=== PATIENT | female | born 1970 | race African-American/Black ===

== ENCOUNTER 2019-11-19 06:22 | Outpatient (CLI) | payer BC, OTHER ==
[2019-11-19 16:08] LABS: Hemoglobin 12.1 g/dL (12.0-16.0); Mean Corpuscular HGB CONC 31.9 g/dL (32.0-36.0); Mean Corpuscular Hemoglobin 28.2 pg (27.0-31.0); Mean Corpuscular Volume 88.3 fL (78.0-98.0); Platelet Count 265 thou/uL (130-400); Red Blood Cell (RBC) Count 4.31 mill/uL (4.20-5.40); White Blood Cell (WBC) Count 7.6 thou/uL (4.8-10.8)
[2019-11-20 12:48] LABS: SARS-CoV-2 MS2 Positive; SARS-CoV-2 N Gene Negative; SARS-CoV-2 S Gene Negative; SARS-CoV-2 orf1ab Negative
== END 2019-11-19 06:23 | disposition home or self-care (01) ==
LOC: LABBT 06:22
PROVIDERS: ATTEND Student in an Organized Health Care Education/Training Program
DX: Z01.812 Encounter for preprocedural laboratory examination (principal); Z11.59 Encounter for screening for other viral diseases; D25.9 Leiomyoma of uterus, unspecified; R10.2 Pelvic and perineal pain
CPT/HCPCS: 85027; 86850; 86870; 86900; 86901; 86905; 87635; U0003

== ENCOUNTER 2019-11-24 08:07 | Day surgery (SDC) | payer BC, OTHER ==
[2019-11-17 11:50] VITALS: BMI 31.8
[2019-11-24] MEDS ORDERED: Famotidine/PF 20 mg/2ml Vial ONE (09:08)
[2019-11-24] MEDS ORDERED: Gabapentin 300 MG CAP ONE (09:08)
[2019-11-24] MEDS ORDERED: CeleCOXIB 100 MG CAP ONE (09:08)
[2019-11-24] MEDS ORDERED: Fentanyl 250 MCG/5 ML VIAL ONE (10:53)
[2019-11-24] MEDS ORDERED: Bupivacaine PF 0.5% 30 ML VIAL ONE (10:57)
[2019-11-24] MEDS ORDERED: Lidocaine 1% w/Epinephrine 1:100K 20 ML VIAL ONE (10:57)
[2019-11-24] MEDS ORDERED: Methylene Blue 50 MG/10 ML AMPUL ONE (12:34)
[2019-11-24] MEDS ORDERED: Promethazine HCl 25 MG/ML VIAL IM PRN ×2 (12:43→13:44)
[2019-11-24] MEDS ORDERED: Ondansetron HCl/PF 4 MG/2 ML Vial IVP PRN (12:43)
[2019-11-24] MEDS ORDERED: HYDROmorphone 2 MG/ML VIAL SLOW IVP PRN (12:43)
[2019-11-24] MEDS ORDERED: Promethazine HCl 25 MG/ML VIAL SLOW IVP PRN (12:43)
[2019-11-24] MEDS ORDERED: Ondansetron PF 4 MG/2 ML Vial IVP PRN (13:44)
[2019-11-24] MEDS ORDERED: Fentanyl 100 MCG/2 ML VIAL SLOW IVP PRN (13:44)
[2019-11-24] MEDS ORDERED: Simethicone Chewable 80 MG TAB PO PRN (13:44)
[2019-11-24] MEDS ORDERED: diphenhydrAMINE 25 MG CAP PO PRN (13:44)
[2019-11-24] MEDS ORDERED: Bisacodyl 10 MG SUPP PR PRN (13:44)
[2019-11-24] MEDS ORDERED: Zolpidem Tartrate 5 MG TAB PO PRN (13:44)
[2019-11-24] MEDS ORDERED: Acetaminophen 325 MG TAB PO PRN (13:44)
[2019-11-24] MEDS ORDERED: traMADol HCl 50 MG TAB PO PRN (13:44)
[2019-11-24] MEDS ORDERED: HYDROcodone/Acetaminophen 5/325 mg Tablet PO PRN ×2 (13:44)
[2019-11-24] MEDS ORDERED: Ondansetron PF 4 MG/2 ML Vial ONE (13:47)
[2019-11-24] MEDS ORDERED: PROPOFOL 200 MG/20 ML VIAL ONE (13:47)
[2019-11-24] MEDS ORDERED: Lidocaine 1% PF 5 ML VIAL ONE (13:47)
[2019-11-24] MEDS ORDERED: Rocuronium Bromide 10 MG/ML (10ML VIAL) ONE (13:47)
[2019-11-24] MEDS ORDERED: EPHEDRINE 25 MG/5 ML SYRINGE ONE (13:47)
[2019-11-24] MEDS ORDERED: Glycopyrrolate 0.2 MG/ML 5 ML SYRINGE ONE (13:47)
[2019-11-24] MEDS ORDERED: Dexamethasone 20 MG/5 ML VIAL ONE (13:47)
[2019-11-24] MEDS: Sodium Chloride 0.9% 1,000 ML IV SCH (17:51)
[2019-11-24] MEDS: Ketorolac Tromethamine 30 MG/ML VIAL IVP SCH ×2 (17:53→23:50)
[2019-11-25] MEDS: Sodium Chloride 0.9% 1,000 ML IV SCH (05:34)
[2019-11-25] MEDS ORDERED: Ibuprofen 800 MG TAB PO SCH (06:00)
[2019-11-25 06:24] LABS: Hemoglobin 11.7 g/dL (12.0-16.0); Mean Corpuscular HGB CONC 32.1 g/dL (32.0-36.0); Mean Corpuscular Hemoglobin 28.5 pg (27.0-31.0); Mean Corpuscular Volume 88.8 fL (78.0-98.0); Mean Platelet Volume 8.2 fL (7.4-10.4); Platelet Count 213 thou/uL (130-400); RBC Distribution Width 11.8 % (11.5-14.5); Red Blood Cell (RBC) Count 4.09 mill/uL (4.20-5.40)
--- NOTE | 2019-11-25 08:04 | PDOC.EVN ---
Event Note - Event Note Event Note: POD1
[2019-11-25 08:09] VITALS: BP 124/61; TEMP 98.9
[2019-11-25] MEDS ORDERED: Amlodipine 5 MG TAB PO SCH (09:00)
[2019-11-25] MEDS ORDERED: Escitalopram Oxalate 10 mg Tablet PO SCH (09:00)
[2019-11-25] MEDS ORDERED: Hydrochlorothiazide 25 MG TAB PO SCH (09:00)
--- NOTE | 2019-11-26 13:14 | OP ---
DATE OF PROCEDURE: 11/24/2019 PREOPERATIVE DIAGNOSES: 1. Uterine fibroids. 2. Pelvic pain. POSTOPERATIVE DIAGNOSES: 1. Uterine fibroids. 2. Pelvic pain. PROCEDURE PERFORMED: Robotic assisted total laparoscopic hysterectomy, left salpingectomy with extracorporeal morcellation. ANESTHESIA: General endotracheal. LEARNING SUPPORT SPECIALIST SURGEON: Autumn Biggs PA-C. ESTIMATED BLOOD LOSS: 50 mL. IVF: 1600 mL of crystalloid. URINE OUTPUT: 170 mL clear urine with a blue tinge due to methylene blue. PATHOLOGY: Uterus, cervix, and left fallopian tube. COMPLICATIONS: None. DRAINS: Acosta catheter. FINDINGS: Large 16 week size uterus with multiple uterine fibroids. Normal-appearing cervix and vaginal mucosa. Normal left fallopian tube and bilateral ovaries. Right fallopian tube was surgically absent. Ureters and bladder intact after administration of methylene blue as well as back filling of the bladder and excellent hemostasis. DESCRIPTION OF PROCEDURE: The patient was taken to the operating room where general anesthesia was obtained without difficulty. The patient was prepped and draped in a sterile fashion in dorsal lithotomy position. A MARY ALICE manipulator was assembled with a 4 cm ring and a 12 cm tip. The MARY ALICE manipulator was inserted into the uterus and the colpotomizer ring was advanced to fit snugly around the cervix. The tenaculum and speculum were removed out of the vagina. Balloons were inflated and legs were placed in low lithotomy. Attention was turned to the abdomen. Anesthetic solution was infiltrated into the umbilicus in the superior aspect and an approximately 3 cm incision was made. The subcutaneous tissue was grasped with Aleena clamps, and the subcutaneous tissue was incised with the Donald scissors until the fascia was met. The fascia was grasped with Aleena clamps and pulled taut. The subcutaneous tissue was dissected off the fascia with the Donald scissors and the fascia was sharply entered into with the Donald scissors. The incision was extended to 3 cm and the small Earl retractor was placed into the incision. The Earl 14 cm bag was then placed into the upper abdomen and the Mini GelPOINT was assembled atop the mini Earl with the 12 mm camera trocar inserted. Pneumoperitoneum was then obtained and the robotic camera was placed into the abdomen and Trendelenburg was obtained. Right and left lower quadrant 8 mm robotic trocars were placed under direct visualization after infiltrating with anesthetic. A right upper quadrant 11 mm child development assistant port was placed under direct visualization after infiltrating with anesthetic. The robot was then docked. The right robotic arm contained the monopolar scissors. Left robotic arm contained a fenestrated bipolar. The surgeon console took control. The uterus was noted to be very broad-based and filling the entire pelvis. The right fallopian tube was surgically absent. The right utero-ovarian was visible and this was cauterized multiple times with the fenestrated and incised with the scissors. The right round ligament was also cauterized with the fenestrated and incised with the scissors. These incision were met in the middle using cautery as the vessels were very engorged due to the patient's fibroid uterus. The anterior and posterior leaves of the broad ligament were opened up at that time, and the retroperitoneum was dissected off the uterus, and the posterior leaf of the broad ligament was able to be incised distally. The ureter was at that point identified in the pelvic sidewall and was not intimately associated with the lateral uterus. The anterior leaf of the broad ligament was also incised and further skeletonization of the uterine vessels was performed mainly using blunt pushing and spreading with the fenestrated, achieving hemostasis with sharp pinpoint bursts of energy from the monopolar scissors as well as cautery of the vessels that were feeding into the fibroid uterus. The vesicouterine peritoneum was then incised while tenting up with the fenestrated undermining the peritoneum to ensure the bladder was not in range and incised with the scissors on cautery and the bladder was carefully dissected down and pushed down below the level of the colpotomizer ring with the fenestrated. There were bladder pillars that were visible that were cauterized with the fenestrated and incised with the scissors. At that point, attention was turned to the left side where the left fallopian tube was grasped and elevated. The mesosalpinx was sequentially clamped, cauterized and incised and the medial portion of the fallopian tube was clamped across, cauterized, incised, and then removed out of the abdomen. The utero-ovarian on the left side was cauterized multiple times with the fenestrated and incised with the scissors. The left round ligament was cauterized with the fenestrated and incised with the scissors. The incisions were met, in a similar fashion was performed on the contralateral side, and the anterior lip, posterior leaves of the broad ligament was opened up. The retroperitoneum was dissected off as well as the posterior leaf of the broad ligament incised down to the level of the round ligament. There was much better visualization at this point as the uterus was more mobile. The ureter was then identified in the pelvic sidewall and this was dissected out directly visible in the retroperitoneum and was dissected out until the ureter dived below the uterine artery. The anterior leaf of the broad ligament was incised down to the level of the contralateral incision and the uterine pedicle was skeletonized with a pushing and spreading of the fenestrated and also incising hazy fibers and small vessels feeding into the uterus with the scissors on cautery. These vessels had been adequately skeletonized and the ureter was visible and the vessels were then clamped and cauterized multiple times. The bladder flap was then further created on the colpotomizer ring by scoring on the pubocervical fascia and bluntly dissecting down the bladder distally below the level of the colpotomizer ring. Attention was then turned to the right side. The right ureter was difficult to visualize and was somewhat close in proximity to the uterine artery where it was located at the internal cervical os. At that point, dissection had already been carried out and there was some concern that the ureter might have been compromised. Therefore, methylene blue was called for in order to locate any direct incision into the ureter with spilled blue fluid and that was given IV by Anesthesia. The ureter was then better identified throughout this process of ensuring adequate skeletonization to allow the ureter to fall away and to localize the vessels that were very engorged and be able to adequately achieve hemostasis. Once this had been performed, the vessels on the uterus were then cauterized above the level of the internal cervical os to ensure that lateral spread of the cautery would not reach the ureter to cause thermal damage and this was done multiple times along the side of the right side of the uterus. A few minutes later, the urine became more blue and there was no blue seen in the field indicating that ureteral incision or transection, and the ureter was visible approximately 2 cm away from the uterine artery at the level of the internal cervical os. Colpotomy was then performed anteriorly and then the lateral uterine arteries were incised. These were incised above the internal cervical os but then dissected down off with the scissors to allow that pedicle to still protrude out in order to achieve hemostasis without causing thermal damage to any surrounding structures down in the pelvis. This was done the same on the left side and then posterior colpotomy was performed and the uterus was completely transected and the manipulator was removed out of the vagina. The uterus was placed up into the upper abdomen and the pelvis was irrigated and hemostasis was achieved of the vaginal cuff with the fenestrated. The scissors were traded out for the needle driver license agent and the vaginal cuff was closed with a 2-0 Stratafix barbed suture in a running fashion and then run back for a second layer with excellent reapproximation ensuring that the suture did not go laterally to hook or kink the ureter in any form or fashion and also incorporated vaginal mucosa and posterior peritoneum in each bite and the needle was cut and removed out of the abdomen. The bag was then brought down into the pelvis and then released from its sutures that held it together and the uterus was placed into the bag easily and the bag was then brought out through the Mini GelPOINT and all instruments were removed out of the abdomen and the robot was undocked. The patient was placed supine at that point and the bag was brought out of mini Earl and the Earl was also removed and placed on the interior of the back in order to hold it taut open and the uterus was then grasped with a Sindi clamp and performing a C-incision technique was morcellated in a contained fashion and this took approximately an additional 20 minutes and all tissue was removed. The back was then removed as well as the Earl and there were no perforations in the bag. The fascia of the umbilical port was closed with 0 PDS suture in a running fashion with excellent reapproximation. That incision was then irrigated and suctioned and the skin was closed with a 4-0 Monocryl in a subcuticular fashion of all incisions and Dermabond was applied. The vaginal cuff was checked from below, noted to be hemostatic with excellent closure. All instruments removed out of the vagina. The patient tolerated the procedure well. Sponge, lap, and needle counts correct x2. The patient was taken to recovery room in stable condition. Patient received Ancef 2 g prior to procedure. Job ID: [id number]
== END 2019-11-25 10:23 | disposition home or self-care (01) ==
LOC: SDC 08:07 → 3SW 13:43 → 3SE 19:53 → SDC 11-25 10:23
PROVIDERS: ATTEND Student in an Organized Health Care Education/Training Program
PROC: 0UT64ZZ Resection of Left Fallopian Tube, Percutaneous Endoscopic Approach (ICD-10-PCS; principal; 2019-11-24)
PROC: 0UT94ZZ Resection of Uterus, Percutaneous Endoscopic Approach (ICD-10-PCS; principal; 2019-11-24)
DX: D25.9 Leiomyoma of uterus, unspecified (principal); N72 Inflammatory disease of cervix uteri; N80.0 Endometriosis of uterus; F41.0 Panic disorder [episodic paroxysmal anxiety]; F41.9 Anxiety disorder, unspecified; F32.9 Major depressive disorder, single episode, unspecified; Z79.899 Other long term (current) drug therapy
CPT/HCPCS: 36415; 85027; 86850; 86900; 86901; 86922; 88307; J0690; J1100; J1885; J2405; J2704; J3010; Q9968; S0020; S0028

== ENCOUNTER 2020-07-03 13:50 | Emergency (ER) | payer BC, OTHER ==
[~2020-07-03 13:50] MED LIST: Iopamidol-370 76% 500 ML 1 ML ONE
[2020-07-03 14:59] LABS: Bilirubin Negative (Negative); Blood, Urine Negative (Negative); Clarity Clear (Clear); Glucose, Urine (Dipstick) Normal (Negative); Ketone, Urine Negative (Negative); Leukocyte Negative Leu/uL (Negative); Nitrite Negative (Negative); Protein, Urine (Dipstick) Negative (Neg-Trace); Specific Gravity, Urine 1.014 (1.002-1.036); Urobilinogen Normal mg/dL (Less than 2)
[2020-07-03 15:11] LABS: #Eosinphils 0.1 thou/uL (0.0-0.7); #Lymphocytes 2.7 thou/uL (1.20-3.40); #Monocytes 0.7 thou/uL (0.11-0.59); #Neutrophils 7.5 thou/uL (1.40-6.50); %Basophils 0.4 % (0.0-1.0); %Eosinophils 0.7 % (0.0-10.0); %Lymphocytes 24.7 % (21.0-51.0); %Monocytes 6.2 % (0.0-10.0); Hemoglobin 11.1 g/dL (12.0-16.0); Mean Corpuscular HGB CONC 32.5 g/dL (32.0-36.0); Mean Corpuscular Volume 86.2 fL (78.0-98.0); Platelet Count 281 thou/uL (130-400); RBC Distribution Width 12.1 % (11.5-14.5); Red Blood Cell (RBC) Count 3.95 mill/uL (4.20-5.40)
[2020-07-03 15:23] LABS: ALT (SGPT) 12 U/L (8-55); AST (SGOT) 11 U/L (5-34); Albumin 3.7 g/dL (3.5-5.0); Alkaline Phosphatase 53 U/L (40-110); Anion Gap 10 mmol/L (10-20); BUN (Urea Nitrogen) 8 mg/dL (7.0-18.7); Bilirubin, Total 0.2 mg/dL (0.2-1.2); CK (CPK) 60 U/L (29-168); Calc. Creatinine Clearance 0 mL/min (70-130); Calcium 8.9 mg/dL (7.8-10.44); Carbon Dioxide 27 mmol/L (22-29); Chloride 104 mmol/L (98-107); Globulin 2.8 g/dL (2.4-3.5); Glucose 95 mg/dL (70-105); Protein, Total 6.5 g/dL (6.0-8.3); Sodium 138 mmol/L (136-145)
--- NOTE | 2020-07-03 16:19 | RAD ---
Exam: Chest one view HISTORY:Cough. COVID positive patient. Shortness of breath. Comparison: None FINDINGS: Cardiac silhouette: Normal Aorta: Unremarkable Pulmonary vessels: Normal Costophrenic angles: Clear LUNGS: No masses or consolidation. Pneumothorax: None Osseous abnormalities: None IMPRESSION: No acute cardiopulmonary process.
--- NOTE | 2020-07-03 16:40 | CT ---
CT ANGIOGRAM THORAX WITH IV CONTRAST AND 3-D RECONSTRUCTIONS CLINICAL INDICATION: Elevated d-dimer. Hypertension. Dyspnea on exertion and fatigue. Productive cough intermittently. COMPARISON: None FINDINGS: Pulmonary arteries: No filling defects are seen in the pulmonary arteries to suggest a pulmonary embo eli. Aorta: The aorta is normal in caliber without evidence of an aortic dissection. Lungs: Clear without evidence of consolidation or pleural effusion. Mediastinum: There is no evidence of lymphadenopathy. Thyroid gland: Normal CT appearance. Osseous structures: No suspicious lytic or sclerotic osseous lesion. Chest wall: No abnormality visualized. Upper abdomen: Approximately 2 cm fluid attenuation hypodense lesion anterior aspect lateral segment left hepatic lobe with smaller fluid attenuation density also seen in the lateral segment left hepatic lobe which are likely attributable to hepatic cysts. No additional very tiny subcentimeter to o small to characterize hypodense lesions seen lateral segment left hepatic lobe. Remainder the visualized upper abdomen demonstrates a normal CT appearance for phase of imaging. IMPRESSION: 1. No CT evidence for pulmonary embolus. 2. Left hepatic lobe cysts.
[2020-07-03] MEDS ORDERED: Albuterol 200 PUFF (6.7GM INHALER) ONE (17:34)
[2020-07-03] MEDS ORDERED: Potassium Chloride 20 MEQ TAB ONE (17:34)
== END 2020-07-03 18:30 | disposition home or self-care (01) ==
LOC: ERS 13:50
DX: U07.1 COVID-19 (principal); I10 Essential (primary) hypertension; Z79.899 Other long term (current) drug therapy
CPT/HCPCS: 36415; 71045; 71275; 80053; 81003; 82550; 83880; 84484; 85025; 85379; 93005; Q9967

== ENCOUNTER 2020-12-26 16:51 | Emergency (ER) | payer BC, OTHER ==
[2020-12-26] MEDS ORDERED: Fentanyl 100 MCG/2 ML VIAL ONE (17:33)
[2020-12-26] MEDS ORDERED: Ketorolac Tromethamine 30 MG/ML VIAL ONE (17:33)
[2020-12-26] MEDS ORDERED: Ondansetron PF 4 MG/2 ML Vial ONE (17:33)
== END 2020-12-26 19:46 | disposition home or self-care (01) ==
LOC: ERS 16:51
DX: S16.1XXA Strain of muscle, fascia and tendon at neck level, initial encounter (principal); S39.012A Strain of muscle, fascia and tendon of lower back, initial encounter; V49.9XXA Car occupant (driver) (passenger) injured in unspecified traffic accident, initial encounter; I10 Essential (primary) hypertension
CPT/HCPCS: 70450; 71260; 72125; 74177; 96374; 96375; J1885; J2405; J3010; Q9967